=== PATIENT | female | born 1990 | race Caucasian/White ===

== ENCOUNTER → 2016-07-16 | Outpatient (CLI) | payer OTHER | LOC: M SMT 09:29 | PROVIDERS: ATTEND Obstetrics & Gynecology | DX: R30.0 Dysuria (principal); E28.2 Polycystic ovarian syndrome ==

== ENCOUNTER → 2017-01-03 | Outpatient (CLI) | payer OTHER | LOC: M SMT 10:58 | PROVIDERS: ATTEND Specialist | DX: E28.2 Polycystic ovarian syndrome (principal) ==

== ENCOUNTER → 2017-01-11 | Outpatient (CLI) | payer OTHER | LOC: M LAB 14:08 | PROVIDERS: ATTEND Advanced Practice Midwife | DX: N91.2 Amenorrhea, unspecified (principal) ==

== ENCOUNTER → 2017-02-10 | Outpatient (CLI) | payer OTHER | LOC: M LAB 10:16 | PROVIDERS: ATTEND Advanced Practice Midwife | DX: N91.2 Amenorrhea, unspecified (principal) ==

== ENCOUNTER → 2017-04-06 | Outpatient (CLI) | payer OTHER ==
[2017-04-06 18:00] LABS: BASO % 0.4 % (0.0-1.0); EOS # 0.4 10^3/uL (0.0-0.50); EOS % 3.7 % (0.0-3.0); IMMATURE GRANULOCYTE % 0.5 % (0-0); LYMPH % 26.5 % (24.0-44.0); MEAN CORPUSCULAR HEMOGLOBIN 28.4 pg (27.0-33.0); MEAN CORPUSCULAR HGB CONC 32.4 g/dl (32.0-36.5); MEAN CORPUSCULAR VOLUME 87.8 fl (80.0-96.0); MONO # 0.9 10^3/uL (0.0-0.8); NEUTROPHILS # 6.9 10^3/uL (1.8-7.7); NEUTROPHILS % 60.9 % (36.0-66.0); PLATELET COUNT, AUTOMATED 378 10^3/uL (150-450); RED CELL DISTRIBUTION WIDTH 12.6 % (11.5-14.5); WHITE BLOOD COUNT 11.3 10^3/uL (4.0-10.0)
[2017-04-11 14:58] LABS: HBsAg Prenatal NEGATIVE (NEGATIVE)
== END ==
LOC: M SMT 13:43
PROVIDERS: ATTEND Specialist
DX: O30.041 Twin pregnancy, dichorionic/diamniotic, first trimester (principal)

== ENCOUNTER → 2017-05-31 | Outpatient (CLI) | payer OTHER ==
[2017-05-31 14:00] LABS: ALT/SGPT 16 U/L (12-78); AST/SGOT 12 U/L (7-37); BILIRUBIN,TOTAL 0.2 MG/DL (0.2-1.0); CREATININE FOR GFR 0.39 MG/DL (0.55-1.02); FREE T4 0.81 NG/DL (0.76-1.46); GLOMERULAR FILTRATION RATE > 60.0 (>60); GLUCOSE CHALLENGE TEST 1 HOUR 129 MG/DL (LESS THAN 140); LDH LACTATE DEHYDROGENASE 136 U/L (84-246); URIC ACID 4.5 MG/DL (2.6-6.0)
[2017-05-31 19:10] LABS: TOTAL PROTEIN,RANDOM URINE 5.8 MG/DL (0.0-12.0)
== END ==
LOC: M SMT 09:25
DX: O30.042 Twin pregnancy, dichorionic/diamniotic, second trimester (principal); O16.2 Unspecified maternal hypertension, second trimester; O99.212 Obesity complicating pregnancy, second trimester

== ENCOUNTER → 2017-06-06 | Outpatient (CLI) | payer OTHER | LOC: M SMT 10:06 | DX: Z36.89 Encounter for other specified antenatal screening (principal); O30.042 Twin pregnancy, dichorionic/diamniotic, second trimester; Z3A.20 20 weeks gestation of pregnancy | CPT/HCPCS: 76811 ==

== ENCOUNTER → 2017-07-12 | Outpatient (CLI) | payer OTHER | LOC: M SMT 13:03 | DX: O30.042 Twin pregnancy, dichorionic/diamniotic, second trimester (principal) ==

== ENCOUNTER → 2017-07-27 | Outpatient (CLI) | payer OTHER | LOC: M SMT 10:16 | DX: O30.043 Twin pregnancy, dichorionic/diamniotic, third trimester (principal) ==

== ENCOUNTER → 2017-08-03 | Outpatient (CLI) | payer OTHER | LOC: M SMT 08:01 | DX: O30.043 Twin pregnancy, dichorionic/diamniotic, third trimester (principal); Z3A.28 28 weeks gestation of pregnancy | CPT/HCPCS: 76819 ==

== ENCOUNTER → 2017-08-10 | Outpatient (CLI) | payer OTHER ==
[2017-08-10 10:40] LABS: BASO % 0.3 % (0.0-1.0); EOS # 0.5 10^3/uL (0.0-0.50); EOS % 4.9 % (0.0-3.0); HEMATOCRIT 35.3 % (36.0-47.0); HEMOGLOBIN 11.8 g/dl (12.0-16.0); IMMATURE GRANULOCYTE % 0.5 % (0-3.0); LYMPH # 1.8 10^3/uL (1.5-6.5); LYMPH % 17.9 % (24.0-44.0); MEAN CORPUSCULAR HEMOGLOBIN 28.8 pg (27.0-33.0); MEAN CORPUSCULAR HGB CONC 33.4 g/dl (32.0-36.5); MEAN CORPUSCULAR VOLUME 86.1 fl (80.0-96.0); MONO # 0.6 10^3/uL (0.0-0.8); NEUTROPHILS # 7.1 10^3/uL (1.8-7.7); NEUTROPHILS % 70.4 % (36.0-66.0); PLATELET COUNT, AUTOMATED 318 10^3/uL (150-450); RED CELL DISTRIBUTION WIDTH 13.3 % (11.5-14.5); WHITE BLOOD COUNT 10.1 10^3/uL (4.0-10.0)
[2017-08-10 11:13] LABS: GLUCOSE CHALLENGE TEST 1 HOUR 119 MG/DL (LESS THAN 140)
== END ==
LOC: M SMT 08:30
DX: Z36.89 Encounter for other specified antenatal screening (principal); O30.043 Twin pregnancy, dichorionic/diamniotic, third trimester; Z3A.00 Weeks of gestation of pregnancy not specified
CPT/HCPCS: 82950

== ENCOUNTER 2017-08-15 08:04 | Inpatient (IN) | payer OTHER ==
[2017-08-15 08:58] LABS: HEMATOCRIT 33.9 % (36.0-47.0); HEMOGLOBIN 11.5 g/dl (12.0-15.5); MEAN CORPUSCULAR HEMOGLOBIN 28.7 pg (27.0-33.0); MEAN CORPUSCULAR HGB CONC 33.9 g/dl (32.0-36.5); MEAN CORPUSCULAR VOLUME 84.5 fl (80.0-96.0); PLATELET COUNT, AUTOMATED 308 10^3/uL (150-450); RED BLOOD COUNT 4.01 10^6/uL (4.00-5.40); RED CELL DISTRIBUTION WIDTH 13.2 % (11.5-14.5); WHITE BLOOD COUNT 8.8 10^3/uL (4.0-10.0)
[2017-08-15] MEDS: ESCITALOPRAM OXALATE 10 MG TAB (LEXAPRO) PO (09:00)
[2017-08-15 09:21] LABS: ALBUMIN 2.4 GM/DL (3.2-5.2); ALBUMIN/GLOBULIN RATIO 0.67 (1.00-1.93); ALKALINE PHOSPHATASE 121 U/L (45-117); ALT/SGPT 12 U/L (12-78); ANION GAP 8 MEQ/L (8-16); AST/SGOT 13 U/L (7-37); BILIRUBIN,TOTAL 0.2 MG/DL (0.2-1.0); BLOOD UREA NITROGEN 10 MG/DL (7-18); CALCIUM LEVEL 8.9 MG/DL (8.5-10.1); CARBON DIOXIDE LEVEL 22 MEQ/L (21-32); CHLORIDE LEVEL 109 MEQ/L (98-107); CREATININE FOR GFR 0.59 MG/DL (0.55-1.30); GLOMERULAR FILTRATION RATE > 60.0 (>60); GLUCOSE, FASTING 98 MG/DL (70-100); LDH LACTATE DEHYDROGENASE 175 U/L (84-246); POTASSIUM SERUM 4.4 MEQ/L (3.5-5.1); SODIUM LEVEL 139 MEQ/L (136-145); URIC ACID 6.9 MG/DL (2.6-6.0)
[2017-08-15 09:39] LABS: TOTAL PROTEIN,RANDOM URINE 239.9 MG/DL (0.0-12.0)
[2017-08-15 09:40] LABS: AMPHETAMINES URINE REFLEX NEGATIVE (NEGATIVE); BARBITURATES URINE REFLEX NEGATIVE (NEGATIVE); BENZODIAZEPINES URINE REFLEX NEGATIVE (NEGATIVE); CANNABINOIDS URINE REFLEX NEGATIVE (NEGATIVE); COCAINE METABOLITE URINE REFLE NEGATIVE (NEGATIVE); METHADONE URINE REFLEX NEGATIVE (NEGATIVE); OPIATES URINE REFLEX NEGATIVE (NEGATIVE); PHENCYCLIDINE URINE REFLEX NEGATIVE (NEGATIVE)
[2017-08-15] MEDS: BETAMETHASONE SOLUSPAN 6MG/ML INJ 5ML (J0702) IM (13:35)
[2017-08-15] MEDS: LABETALOL HCL 100 MG/20 ML VIAL IV ×3 (17:34→19:32)
[2017-08-15] MEDS ORDERED: metFORMIN (GLUCOPHAGE) 1000 MG TABLET PO (18:00)
[2017-08-15] MEDS: metFORMIN (GLUCOPHAGE) 1000 MG TABLET PO (18:16)
[2017-08-15] MEDS: LABETALOL 200 MG TAB PO (20:02)
[2017-08-15] MEDS: FAMOTIDINE 20 MG TAB PO (21:30)
[2017-08-16] MEDS: LEVOTHYROXINE 25MCG TABLET (0.025MG) PO (06:47)
[2017-08-16] MEDS: FAMOTIDINE 20 MG TAB PO ×2 (08:31→20:34)
[2017-08-16] MEDS: LABETALOL 200 MG TAB PO ×2 (08:31→16:29)
[2017-08-16] MEDS: ESCITALOPRAM OXALATE 10 MG TAB (LEXAPRO) PO (14:25)
[2017-08-16] MEDS: BETAMETHASONE SOLUSPAN 6MG/ML INJ 5ML (J0702) IM (14:29)
[2017-08-16] MEDS ORDERED: LABETALOL 200 MG TAB PO (16:00)
[2017-08-16] MEDS: metFORMIN (GLUCOPHAGE) 1000 MG TABLET PO (18:42)
[2017-08-17] MEDS: LABETALOL 200 MG TAB PO ×4 (00:04→23:51)
[2017-08-17] MEDS: CALCIUM CARBONATE 500 MG CHEW U/D PO ×2 (03:10→17:15)
[2017-08-17] MEDS: LEVOTHYROXINE 25MCG TABLET (0.025MG) PO (05:47)
[2017-08-17] MEDS: FAMOTIDINE 20 MG TAB PO ×2 (08:32→20:30)
[2017-08-17] MEDS: ESCITALOPRAM OXALATE 10 MG TAB (LEXAPRO) PO (13:57)
[2017-08-17] MEDS: metFORMIN (GLUCOPHAGE) 1000 MG TABLET PO (18:25)
[2017-08-18] MEDS: LEVOTHYROXINE 25MCG TABLET (0.025MG) PO (06:00)
[2017-08-18] MEDS: LABETALOL 200 MG TAB PO (08:00)
== END 2017-08-18 09:46 | disposition home or self-care (01) | DRG 566 ==
LOC: M LDO 08:04 → M LDI 08-16 11:24 → M OBS 08-16 20:05
DX: O14.93 Unspecified pre-eclampsia, third trimester (principal); Z68.43 Body mass index [BMI] 50.0-59.9, adult; O30.043 Twin pregnancy, dichorionic/diamniotic, third trimester; E66.9 Obesity, unspecified; Z3A.30 30 weeks gestation of pregnancy; F41.9 Anxiety disorder, unspecified; E03.9 Hypothyroidism, unspecified; Z79.84 Long term (current) use of oral hypoglycemic drugs; Z79.82 Long term (current) use of aspirin; O99.283 Endocrine, nutritional and metabolic diseases complicating pregnancy, third trimester; O99.213 Obesity complicating pregnancy, third trimester; O99.343 Other mental disorders complicating pregnancy, third trimester; Z79.899 Other long term (current) drug therapy; O10.013 Pre-existing essential hypertension complicating pregnancy, third trimester

== ENCOUNTER → 2017-08-26 | Outpatient (REF) | payer OTHER | LOC: M LAB REF 17:13 | DX: O30.043 Twin pregnancy, dichorionic/diamniotic, third trimester (principal) ==

== ENCOUNTER 2017-08-31 05:52 | Inpatient (IN) | payer OTHER ==
[2017-08-31 06:28] LABS: HEMATOCRIT 36.8 % (36.0-47.0); HEMOGLOBIN 12.2 g/dl (12.0-15.5); MEAN CORPUSCULAR HEMOGLOBIN 28.1 pg (27.0-33.0); MEAN CORPUSCULAR HGB CONC 33.2 g/dl (32.0-36.5); MEAN CORPUSCULAR VOLUME 84.8 fl (80.0-96.0); PLATELET COUNT, AUTOMATED 342 10^3/uL (150-450); RED BLOOD COUNT 4.34 10^6/uL (4.00-5.40); RED CELL DISTRIBUTION WIDTH 13.4 % (11.5-14.5); WHITE BLOOD COUNT 10.8 10^3/uL (4.0-10.0)
[2017-08-31] MEDS ORDERED: ONDANSETRON 4MG/2ML VIAL (J2405) As Ordered (07:06)
[2017-08-31] MEDS ORDERED: OXYTOCIN INJ 10 UNITS/ML VIAL (J2590) As Ordered (07:06)
[2017-08-31] MEDS ORDERED: KETOROLAC 60 MG/2 ML VIAL (J1885) As Ordered (07:06)
[2017-08-31] MEDS ORDERED: fentaNYL 100 MCG/2 ML INJECTION (J3010) As Ordered (07:07)
[2017-08-31] MEDS ORDERED: MORPHINE PRES-FREE INJ 10 MG/10 ML VIAL (J2274) As Ordered (07:07)
[2017-08-31] MEDS: LR 1,000 ML IV ×4 (07:33→17:57)
[2017-08-31] MEDS: BICITRA 30ML SOLN UDC PO (08:57)
[2017-08-31] MEDS ORDERED: NALOXONE INJ 0.4 MG/1 ML VIAL (J2310) IV ×2 (09:12)
[2017-08-31] MEDS ORDERED: NALBUPHINE HCL 10 MG/ML AMP (J2300) IV (09:12)
[2017-08-31] MEDS ORDERED: METOCLOPRAMIDE INJ 10MG/2ML VIAL (J2765) IV ×2 (09:12→11:00)
[2017-08-31] MEDS ORDERED: ONDANSETRON 4MG/2ML VIAL (J2405) IV ×3 (09:12→11:00)
[2017-08-31] MEDS ORDERED: KETAMINE HCL 200 MG/20 ML VIAL As Ordered (09:27)
[2017-08-31] MEDS ORDERED: MIDAZOLAM INJ 2 MG/2 ML VIAL (J2250) As Ordered ×2 (09:42)
[2017-08-31] MEDS ORDERED: PROPOFOL 200 MG/20 ML VIAL As Ordered (10:11)
[2017-08-31] MEDS ORDERED: OXYTOCIN 30 UNITS IN 0.9% NaCl 500ML IV BAG (J2590) As Ordered (10:12)
[2017-08-31] MEDS ORDERED: MAGNESIUM *L&D* 4 GM/100 ML BAG (40MG/ML) (J3475) As Ordered (10:13)
[2017-08-31] MEDS ORDERED: MAGNESIUM SULFATE 4% INJ 20GM/500ML (40MG/ML) (J3475) As Ordered (10:13)
[2017-08-31] MEDS ORDERED: DOCUSATE SODIUM 100 MG CAP PO (10:15)
[2017-08-31] MEDS ORDERED: PERCOCET 5MG/325MG TAB PO ×3 (10:15→11:00)
[2017-08-31] MEDS ORDERED: MOM 30ML SUSPENSION UDC PO (10:15)
[2017-08-31] MEDS: MAG Sulf (L&D) 4 GM/100 ML 4 GM in APPROPRIATE DILUENT 1 EA IV (10:40)
[2017-08-31] MEDS ORDERED: KETOROLAC 30 MG/ML VIAL (J1885) IV (11:00)
[2017-08-31] MEDS ORDERED: fentaNYL 100 MCG/2 ML INJECTION (J3010) IV (11:00)
[2017-08-31] MEDS ORDERED: diphenhydrAMINE INJ 50MG/ML VIAL (J1200) IV (11:00)
[2017-08-31] MEDS: MAG Sulf (OBGYN) 20GM/500ML 20,000 MG in APPROPRIATE DILUENT 1 EA IV ×2 (11:05→21:38)
[2017-08-31] MEDS: LR 800 ML IV (12:12)
[2017-08-31] MEDS: LIDOCAINE 1% MDV 20ML VIAL INFIL (12:12)
[2017-08-31] MEDS: OXYTOCIN DRIP 30 UNITS in APPROPRIATE DILUENT 1 EA IV (12:12)
[2017-08-31] MEDS: LABETALOL 200 MG TAB PO ×3 (12:19→20:36)
[2017-08-31] MEDS: hydrALAZINE INJ 20 MG/ML VIAL IV ×3 (14:25→17:22)
[2017-08-31] MEDS: LEVOTHYROXINE 25MCG TABLET (0.025MG) PO (14:38)
[2017-08-31] MEDS: ESCITALOPRAM OXALATE 10 MG TAB (LEXAPRO) PO (15:56)
[2017-08-31] MEDS: KETOROLAC 30 MG/ML VIAL (J1885) IV ×2 (16:44→21:27)
[2017-09-01] MEDS: KETOROLAC 30 MG/ML VIAL (J1885) IV ×2 (03:33→09:22)
[2017-09-01] MEDS: LEVOTHYROXINE 25MCG TABLET (0.025MG) PO (05:32)
[2017-09-01 07:16] LABS: HEMATOCRIT 31.4 % (36.0-47.0); HEMOGLOBIN 10.4 g/dl (12.0-15.5); MEAN CORPUSCULAR HEMOGLOBIN 28.7 pg (27.0-33.0); MEAN CORPUSCULAR HGB CONC 33.1 g/dl (32.0-36.5); MEAN CORPUSCULAR VOLUME 86.7 fl (80.0-96.0); PLATELET COUNT, AUTOMATED 287 10^3/uL (150-450); RED BLOOD COUNT 3.62 10^6/uL (4.00-5.40); RED CELL DISTRIBUTION WIDTH 13.7 % (11.5-14.5); WHITE BLOOD COUNT 11.8 10^3/uL (4.0-10.0)
[2017-09-01] MEDS: PRENATAL VITAMINS CHEWABLE TABLET PO (08:36)
[2017-09-01] MEDS: MAG Sulf (OBGYN) 20GM/500ML 20,000 MG in APPROPRIATE DILUENT 1 EA IV (08:36)
[2017-09-01] MEDS: NIFEdipine 30 MG XL TAB PO (08:37)
[2017-09-01] MEDS: LABETALOL 200 MG TAB PO ×3 (08:38→20:58)
[2017-09-01] MEDS: LR 1,000 ML IV (08:39)
[2017-09-01] MEDS: diphenhydrAMINE INJ 50MG/ML VIAL (J1200) IV (09:31)
[2017-09-01] MEDS ORDERED: LABETALOL HCL 100 MG/20 ML VIAL As Ordered (09:31)
[2017-09-01] MEDS: LABETALOL HCL 100 MG/20 ML VIAL IV (09:43)
[2017-09-01] MEDS: ESCITALOPRAM OXALATE 10 MG TAB (LEXAPRO) PO (15:48)
[2017-09-01] MEDS: IBUPROFEN 800 MG TAB PO (17:39)
[2017-09-02] MEDS: IBUPROFEN 800 MG TAB PO ×3 (01:35→17:14)
[2017-09-02] MEDS: LEVOTHYROXINE 25MCG TABLET (0.025MG) PO (05:34)
[2017-09-02] MEDS: FERROUS SULFATE 325MG TAB PO ×2 (08:18→21:15)
[2017-09-02] MEDS: PRENATAL VITAMINS CHEWABLE TABLET PO (08:18)
[2017-09-02] MEDS: NIFEdipine 30 MG XL TAB PO (08:19)
[2017-09-02] MEDS: LABETALOL 200 MG TAB PO ×3 (08:19→21:16)
[2017-09-02] MEDS: CEPACOL LOZENGE PO ×2 (14:27→17:13)
[2017-09-02] MEDS: ESCITALOPRAM OXALATE 10 MG TAB (LEXAPRO) PO (15:05)
[2017-09-02] MEDS: MEASLES,MUMPS,RUBELLA VACCINE INJ (MMR-II) (90707) SC (21:39)
[2017-09-02] MEDS: RHOGAM 300 MCG (1500 IU) INJ (J2790) IM (21:39)
[2017-09-03] MEDS: IBUPROFEN 800 MG TAB PO ×2 (01:35→10:06)
[2017-09-03] MEDS: LEVOTHYROXINE 25MCG TABLET (0.025MG) PO (05:40)
[2017-09-03] MEDS: CEPACOL LOZENGE PO ×2 (05:44→08:22)
[2017-09-03] MEDS: PRENATAL VITAMINS CHEWABLE TABLET PO (08:22)
[2017-09-03] MEDS: LABETALOL 200 MG TAB PO (08:23)
[2017-09-03] MEDS: NIFEdipine 30 MG XL TAB PO (08:23)
[2017-09-03] MEDS: FERROUS SULFATE 325MG TAB PO (08:23)
[2017-09-03] MEDS: MAGIC MOUTHWASH SUSPENSION BTL SS (09:57)
== END 2017-09-03 10:30 | disposition home or self-care (01) | DRG 540 ==
LOC: M LDI 05:52 → M OBS 11:52
PROVIDERS: Specialist
PROC: 10D00Z1 Extraction of Products of Conception, Low, Open Approach (ICD-10-PCS; principal; 2017-08-31 07:30)
DX: O14.14 Severe pre-eclampsia complicating childbirth (principal); O60.14X1 Preterm labor third trimester with preterm delivery third trimester, fetus 1; O60.14X2 Preterm labor third trimester with preterm delivery third trimester, fetus 2; Z37.2 Twins, both liveborn; O30.003 Twin pregnancy, unspecified number of placenta and unspecified number of amniotic sacs, third trimester; Z3A.33 33 weeks gestation of pregnancy; O32.2XX2 Maternal care for transverse and oblique lie, fetus 2; O32.1XX1 Maternal care for breech presentation, fetus 1

== ENCOUNTER → 2018-09-16 | Outpatient (REF) | payer OTHER ==
[~2018-09-16] MED LIST: COLA100C5 PO; FERR325T3 PO; IBUP80TA PO; LABE300T19 PO; LABE300T2 PO; LEVO25TA5 PO; LEXA1TAB2 PO; MAGICMW MT; METF10004 PO; NIFE30TA50 PO; PERC5TAB12 PO; PRENTAB9 PO; TUMS500C PO; ZANTTAB PO
== END ==
LOC: M LAB REF 10:30
PROVIDERS: ATTEND Physician Assistant Medical
DX: J02.9 Acute pharyngitis, unspecified (principal)

== ENCOUNTER → 2021-03-05 | Outpatient (CLI) | payer OTHER ==
[~2021-03-05] MED LIST changes: -LABE300T19 PO; +LABE300T3 PO; +ZANT150T40 PO; -ZANTTAB PO
--- NOTE | 2021-03-06 03:17 | REP ---
INDICATION: CERVICALGIA COMPARISON: None. TECHNIQUE: AP, lateral, flexion/extension, bilateral oblique, swimmer's and open-mouth views. FINDINGS: Alignment and lordosis is maintained. There is no evidence for acute fracture / compression injury or subluxation. No significant degenerative changes are appreciated. Oblique views demonstrate patent neural foramen. Open mouth view demonstrates normal C1-C2 articulation and odontoid process. IMPRESSION: Normal age-appropriate cervical spine series. <Electronically signed by Esdras Villagomez > 03/06/21 [id number]
== END ==
LOC: M WUC 13:14
PROVIDERS: ATTEND Physician Assistant
DX: M54.2 Cervicalgia (principal)

== ENCOUNTER → 2022-12-21 | Outpatient (REF) | payer OTHER ==
[~2022-12-21] MED LIST changes: -LABE300T2 PO; +LABE300T55 PO; +NIFE-3 PO; -NIFE30TA50 PO
== END ==
LOC: M SFHCWAGY 16:58
PROVIDERS: ATTEND Nurse Practitioner Family
DX: R10.2 Pelvic and perineal pain (principal)

== ENCOUNTER → 2022-12-23 | Outpatient (REF) | payer OTHER | LOC: M SFHCWAGY 15:34 | PROVIDERS: ATTEND Nurse Practitioner Family | DX: R10.2 Pelvic and perineal pain (principal) ==

== ENCOUNTER → 2023-08-24 | Outpatient (CLI) | payer OTHER ==
[~2023-08-24] MED LIST changes: +LABE300T28 PO; -LABE300T55 PO
[2023-08-24 11:58] LABS: HEMATOCRIT 41.4 % (36.0-47.0); HEMOGLOBIN 13.5 g/dl (12.0-15.5); MEAN CORPUSCULAR HEMOGLOBIN 28.1 pg (27.0-33.0); MEAN CORPUSCULAR HGB CONC 32.6 g/dl (32.0-36.5); MEAN CORPUSCULAR VOLUME 86.3 fl (80.0-96.0); PLATELET COUNT, AUTOMATED 304 10^3/uL (150-450); WHITE BLOOD COUNT 6.3 10^3/uL (4.0-10.0)
[2023-08-24 12:08] LABS: ALBUMIN 3.7 G/DL (3.2-5.2); ALKALINE PHOSPHATASE 63 U/L (46-116); ALT/SGPT 57 U/L (7.0-40); AST/SGOT 21 U/L (<34); BILIRUBIN,TOTAL 0.8 MG/DL (0.3-1.2); BLOOD UREA NITROGEN 11 MG/DL (9-23); CALCIUM LEVEL 8.5 MG/DL (8.5-10.1); CARBON DIOXIDE LEVEL 28 MMOL/L (20-31); CHLORIDE LEVEL 104 MMOL/L (98-107); CHOLESTEROL LEVEL 148 MG/DL (<200); CHOLESTEROL RISK RATIO 3.71 (<5); CREATININE FOR GFR 0.85 MG/DL (0.55-1.30); GLOMERULAR FILTRATION RATE > 60.0 (>60); GLUCOSE, FASTING 98 MG/DL (60-100); HDL CHOLESTEROL 39.8 MG/DL (>40); LDL CHOLESTEROL 86.8 MG/DL (<100); NON-HDL-C 108.2 MG/DL; POTASSIUM SERUM 4.3 MMOL/L (3.5-5.1); SODIUM LEVEL 138 MMOL/L (136-145); TOTAL PROTEIN 6.6 G/DL (5.7-8.2); TRIGLYCERIDES LEVEL 107 MG/DL (<150)
[2023-08-24 12:10] LABS: THYROID STIMULATING HORMONE 1.739 uIU/ML (0.55-4.78)
== END ==
LOC: M WUC 08:40
PROVIDERS: ATTEND Physician Assistant
DX: E78.2 Mixed hyperlipidemia (principal); I10 Essential (primary) hypertension

== ENCOUNTER 2024-03-04 05:12 | Emergency (ER) | payer OTHER ==
[~2024-03-04] VITALS: Ht 160 cm; Wt 129.2 kg
[2024-03-04 06:50] LABS: BASO % 0.3 % (0.0-1.0); EOS # 0.1 10^3/uL (0.0-0.5); EOS % 1.1 % (0.0-3.0); HEMATOCRIT 38.7 % (36.0-47.0); HEMOGLOBIN 12.9 g/dl (12.0-15.5); LYMPH # 0.9 10^3/uL (1.5-5.0); LYMPH % 10.2 % (24.0-44.0); MEAN CORPUSCULAR HEMOGLOBIN 29.3 pg (27.0-33.0); MEAN CORPUSCULAR HGB CONC 33.3 g/dl (32.0-36.5); MEAN CORPUSCULAR VOLUME 87.8 fl (80.0-96.0); MONO # 0.7 10^3/uL (0.0-0.8); MONO % 7.9 % (2.0-8.0); NEUTROPHILS # 7.3 10^3/uL (1.5-8.5); NEUTROPHILS % 80.2 % (36.0-66.0); PLATELET COUNT, AUTOMATED 282 10^3/uL (150-450); RED BLOOD COUNT 4.41 10^6/uL (4.00-5.40); WHITE BLOOD COUNT 9.1 10^3/uL (4.0-10.0)
[2024-03-04 07:03] LABS: INR 1.16; PROTHROMBIN TIME 14.4 SECONDS (12.5-14.5)
[2024-03-04 07:21] LABS: LIPASE 24 U/L (12-53)
[2024-03-04 07:24] LABS: ALBUMIN 3.5 G/DL (3.2-5.2); ALKALINE PHOSPHATASE 63 U/L (46-116); ALT/SGPT 24 U/L (7.0-40); AST/SGOT 18 U/L (<34); BILIRUBIN,DIRECT 0.4 MG/DL (<0.4); BILIRUBIN,TOTAL 1.2 MG/DL (0.3-1.2); BLOOD UREA NITROGEN 8 MG/DL (9-23); CALCIUM LEVEL 8.9 MG/DL (8.5-10.1); CARBON DIOXIDE LEVEL 25 MMOL/L (20-31); CHLORIDE LEVEL 101 MMOL/L (98-107); CK-MB VALUE MASS < 1.0 NG/ML (<3.6); CREATININE FOR GFR 0.73 MG/DL (0.55-1.30); GLOMERULAR FILTRATION RATE > 60.0 (>60); GLUCOSE, FASTING 103 MG/DL (60-100); POTASSIUM SERUM 4.3 MMOL/L (3.5-5.1); SODIUM LEVEL 131 MMOL/L (136-145); TOTAL PROTEIN 7.2 G/DL (5.7-8.2)
[2024-03-04] MEDS: BENZONATATE 100MG CAPSULE PO ONE (07:25)
[2024-03-04] MEDS: NS 1,000 ML IV ONE (07:25)
[2024-03-04 07:26] LABS: THYROID STIMULATING HORMONE 0.594 uIU/ML (0.55-4.78)
[2024-03-04 07:27] LABS: CPK CREATINE PHOSPHOKINASE 136 U/L (34-145); MB/CK RELATIVE INDEX 0.73 (< OR =4)
[2024-03-04 09:00] VITALS: BP 128/66
[2024-03-04] MEDS ORDERED: AZIT-12 PO (09:11)
[2024-03-04] MEDS ORDERED: BENZ200C70 PO (09:11)
[2024-03-04] MEDS: ACETAMINOPHEN 500 MG TAB PO ONE (09:41)
[2024-03-04 09:45] VITALS: TEMP 99.6; O2SAT 96
== END 2024-03-04 09:48 | disposition home or self-care (01) ==
LOC: M ED 05:12
DX: A49.3 Mycoplasma infection, unspecified site (principal); R00.0 Tachycardia, unspecified; I10 Essential (primary) hypertension; Z79.899 Other long term (current) drug therapy; Z91.030 Bee allergy status

== ENCOUNTER → 2024-04-20 | Outpatient (CLI) | payer OTHER ==
[~2024-04-20] MED LIST changes: +AZIT-12 PO; +BENZ200C70 PO
[2024-04-20 17:37] LABS: THYROXINE (T4) 7.1 UG/DL (4.5-10.9); TOTAL 25(OH) VITAMIN D 12.4 NG/ML (20.0-100.0)
[2024-04-20 17:38] LABS: THYROID STIMULATING HORMONE 1.395 uIU/ML (0.55-4.78)
[2024-04-20 17:40] LABS: FREE THYROXINE INDEX 2.3 % (1.3-4.8); T UPTAKE 32.4 % (22.5-37.0)
== END ==
LOC: M WUC 11:37
PROVIDERS: ATTEND Physician Assistant
DX: E55.9 Vitamin D deficiency, unspecified (principal); E66.09 Other obesity due to excess calories; R53.83 Other fatigue

== ENCOUNTER → 2025-01-30 | Outpatient (CLI) | payer OTHER ==
[2025-01-30 14:31] LABS: PLATELET COUNT, AUTOMATED 365 10^3/uL (150-450)
[2025-01-30 14:33] LABS: ALT/SGPT 29 U/L (7.0-40); AST/SGOT 19 U/L (<34); CALCIUM LEVEL 9.5 MG/DL (8.5-10.1); CARBON DIOXIDE LEVEL 28 MMOL/L (20-31); CHLORIDE LEVEL 103 MMOL/L (98-107); CHOLESTEROL LEVEL 192 MG/DL (<200); CHOLESTEROL RISK RATIO 3.96 (<5); CREATININE FOR GFR 0.82 MG/DL (0.55-1.30); GLOMERULAR FILTRATION RATE > 90.0 (>60); LDL CHOLESTEROL 123.0 MG/DL (<100); NON-HDL-C 143.6 MG/DL; POTASSIUM SERUM 4.9 MMOL/L (3.5-5.1); SODIUM LEVEL 139 MMOL/L (136-145); TRIGLYCERIDES LEVEL 103 MG/DL (<150)
== END ==
LOC: M WUC 09:56
PROVIDERS: ATTEND Physician Assistant
DX: I10 Essential (primary) hypertension (principal); E78.2 Mixed hyperlipidemia